=== PATIENT | female | born 1995 | race Caucasian/White ===

== ENCOUNTER → 2019-08-10 | Outpatient (REF) | payer OTHER ==
[2019-08-10 12:56] LABS: BASO % 0.3 % (0.0-1.0); EOS % 0.3 % (0.0-3.0); HEMATOCRIT 44.4 % (36.0-47.0); HEMOGLOBIN 14.5 g/dl (12.0-15.5); LYMPH # 2.3 10^3/uL (1.5-5.0); LYMPH % 30.3 % (24.0-44.0); MEAN CORPUSCULAR HEMOGLOBIN 28.1 pg (27.0-33.0); MEAN CORPUSCULAR HGB CONC 32.7 g/dl (32.0-36.5); MONO # 0.4 10^3/uL (0.0-0.8); MONO % 4.9 % (0.0-5.0); NEUTROPHILS # 4.8 10^3/uL (1.5-8.5); NEUTROPHILS % 63.9 % (36.0-66.0); PLATELET COUNT, AUTOMATED 237 10^3/uL (150-450); RED BLOOD COUNT 5.16 10^6/uL (4.00-5.40); WHITE BLOOD COUNT 7.5 10^3/uL (4.0-10.0)
== END ==
LOC: M SFHCPLAZ 09:58
PROVIDERS: ATTEND Family Medicine
DX: R59.0 Localized enlarged lymph nodes (principal)
CPT/HCPCS: 36415; 85025; G0463

== ENCOUNTER → 2019-08-14 | Outpatient (CLI) | payer OTHER ==
--- NOTE | 2019-08-15 08:18 | REP ---
FOCUSED RIGHT BREAST SONOGRAPHY: HISTORY: Discomfort in the areolar region and area lateral to the areola. Prior history of shingles affecting the right breast. Axillary lymphadenopathy. SONOGRAPHIC FINDINGS: Scanning in the subareolar region of the right breast shows a heterogeneous fibroglandular normal air. No cyst or mass is seen in this location. No suspicious sonographic findings are seen. In the right axilla, sonographic scanning demonstrates two identifiable lymph nodes measured as follows: 1.8 x 1.5 x 1.3 and 2.1 x 1.6 x 0.8 cm. The larger of these is predominately fat replaced with only a thin rim of cortex. The smaller lymph node, 1.8 cm in greatest diameter, shows some hypertrophy of its cortical margin but the hilar architecture is preserved. This may be reactive hypertrophy. IMPRESSION: BIRADS category 3 probably benign findings. There is a single slightly hypertrophied lymph node visible in the right axilla in this patient with a recent history of cutaneous inflammation. This is likely reactive. Repeat sonography could be considered in 6 months and clinical follow-up is advised. This patient's estimated Tyrer-Cuzick lifetime risk assessment for breast cancer is 12.2 %.
== END ==
LOC: M WHC 12:44
PROVIDERS: ATTEND Family Medicine
DX: R59.0 Localized enlarged lymph nodes (principal); N64.4 Mastodynia

== ENCOUNTER → 2019-08-18 | Outpatient (REF) | payer OTHER ==
[2019-08-18 12:55] LABS: HEMOGLOBIN A1c 5.5 %
== END ==
LOC: M SFHCPLAZ 10:01
PROVIDERS: ATTEND Family Medicine
DX: Z86.32 Personal history of gestational diabetes (principal)

== ENCOUNTER → 2019-08-18 | Outpatient (CLI) | payer OTHER ==
--- NOTE | 2019-08-18 15:37 | REP ---
ULTRASONOGRAPHY OF A SKIN NODULE ON THE BUTTOCK REGION NEAR THE GLUTEAL CLEFT ON THE LEFT: Multiple sonographic images of the region of interest shows no cystic or solid mass. No ultrasonographic abnormalities are noted. Electronically Signed by Chau Cardozo DO 08/18/2019 03:45 P
== END ==
LOC: M RAD 14:39
PROVIDERS: ATTEND Family Medicine
DX: R22.9 Localized swelling, mass and lump, unspecified (principal); Z86.32 Personal history of gestational diabetes

== ENCOUNTER → 2019-12-01 | Outpatient (REF) | payer OTHER ==
[2019-12-01 17:07] LABS: HEMATOCRIT 40.3 % (36.0-47.0); HEMOGLOBIN 13.4 g/dl (12.0-15.5); MEAN CORPUSCULAR HEMOGLOBIN 28.3 pg (27.0-33.0); MEAN CORPUSCULAR HGB CONC 33.3 g/dl (32.0-36.5); MEAN CORPUSCULAR VOLUME 85.2 fl (80.0-96.0); PLATELET COUNT, AUTOMATED 230 10^3/uL (150-450); RED BLOOD COUNT 4.73 10^6/uL (4.00-5.40); WHITE BLOOD COUNT 9.8 10^3/uL (4.0-10.0)
[2019-12-01 17:26] LABS: GLUCOSE CHALLENGE TEST 1 HOUR 120 MG/DL (LESS THAN 140)
[2019-12-01 17:39] LABS: HEMOGLOBIN A1c 5.5 %
[2019-12-01 18:21] LABS: HIV 1&2 SCREEN CENTAUR NEGATIVE (NEGATIVE)
[2019-12-01 20:17] LABS: CHLAMYDIA DNA AMPLIFICATION NEGATIVE (NEGATIVE); GC DNA AMPLIFICATION NEGATIVE (NEGATIVE)
[2019-12-04 11:06] LABS: HEPATITIS C VIRUS ABY INDEX 0.2 INDEX (<0.8)
== END ==
LOC: M PLALAB 12:18
PROVIDERS: ATTEND Advanced Practice Midwife
DX: Z34.91 Encounter for supervision of normal pregnancy, unspecified, first trimester (principal)

== ENCOUNTER → 2020-03-04 | Outpatient (CLI) | payer OTHER ==
--- NOTE | 2020-03-12 13:19 | REP ---
OB ULTRASOUND: ANATOMY SCREENING PERFORMED Real time sonographic evaluation of gravid uterus performed. There is a single living intrauterine gestation. The estimated gestational age is reportedly 21 weeks 4 days, 07/11/20. Todays measurements indicated appropriate growth. BPD: 53mm, 22 weeks 1 day, 65th percentile HC: 205mm, 22 weeks 4 days, 81st percentile AC: 170mm, 22 weeks 0 days, 58th percentile FL: 36mm, 21 weeks 3 days, 47th percentile HC/AC ratio 1.21, normal range 1.05-1.24 Estimated weight 455g, 57th percentile position is transverse with head to the left side. Placenta is anterior and grade 0 with no previa or abruption. HEART RATE is 156bpm. Amniotic fluid appears within normal limits. The cervix is closed and measures 3.5cm in length. The anatomy includes the lateral ventricles, posterior fossa, upper lip, ventricular outflow tracts, stomach, kidneys, bladder, spine, three vessel cord and cord insertion. Four-chamber heart is not well visualized. MTDD
== END ==
LOC: M WHC 12:22
PROVIDERS: ATTEND Advanced Practice Midwife
DX: Z34.82 Encounter for supervision of other normal pregnancy, second trimester (principal); Z3A.21 21 weeks gestation of pregnancy

== ENCOUNTER → 2020-03-26 | Outpatient (CLI) | payer OTHER ==
--- NOTE | 2020-03-26 13:46 | REP ---
INDICATION: Z34.92 F/U ANATOMY/HEART COMPARISON: 03/04/2020 TECHNIQUE: Transabdominal obstetrical ultrasound with color Doppler evaluation. FINDINGS: Examination demonstrates a single live intrauterine in breech presentation. motion is identified by technologist. Placenta is noted anterior and grade 1 without evidence for placenta previa or abruption. Amniotic fluid volume is normal. Cervix measures 3.4 cm in length and appears closed. No evidence for nuchal cord. Gestational age by LMP 24 weeks 5 days with CASSIA 07/11/2020. Gestational age by current measurements 27 weeks 2 days with CASSIA 06/23/2020. FHR equals 149 beats per minute. Estimated weight 1110 grams (greater than 97thpercentile based on age by LMP, and 85th percentile based on age by current measurements at 27 weeks 2 days). Anatomical assessment demonstrates normal four-chamber heart. IMPRESSION: 1. Normal appearance to the four-chamber heart. In conjunction with prior examination anatomical assessment is complete and normal. 2. Estimated weight may be greater than expected and requires correlation. <Electronically signed by Ryan Santiago > 03/26/20 0954
== END ==
LOC: M WHC 12:13
PROVIDERS: ATTEND Advanced Practice Midwife
DX: Z34.92 Encounter for supervision of normal pregnancy, unspecified, second trimester (principal)

== ENCOUNTER → 2020-04-12 | Outpatient (REF) | payer OTHER ==
[2020-04-12 15:36] LABS: HEMATOCRIT 38.6 % (36.0-47.0); HEMOGLOBIN 12.6 g/dl (12.0-15.5); MEAN CORPUSCULAR HEMOGLOBIN 29.2 pg (27.0-33.0); MEAN CORPUSCULAR HGB CONC 32.6 g/dl (32.0-36.5); MEAN CORPUSCULAR VOLUME 89.6 fl (80.0-96.0); PLATELET COUNT, AUTOMATED 193 10^3/uL (150-450); RED BLOOD COUNT 4.31 10^6/uL (4.00-5.40); WHITE BLOOD COUNT 13.1 10^3/uL (4.0-10.0)
== END ==
LOC: M PLALAB 13:27
PROVIDERS: ATTEND Advanced Practice Midwife
DX: Z34.92 Encounter for supervision of normal pregnancy, unspecified, second trimester (principal); Z36.89 Encounter for other specified antenatal screening

== ENCOUNTER → 2020-04-26 | Outpatient (CLI) | payer OTHER | LOC: M LAB 07:30 | PROVIDERS: ATTEND Specialist | DX: O99.810 Abnormal glucose complicating pregnancy (principal); Z3A.00 Weeks of gestation of pregnancy not specified ==

== ENCOUNTER → 2020-06-14 | Outpatient (CLI) | payer OTHER ==
[~2020-06-14] MED LIST: PRENTAB9 PO
--- NOTE | 2020-06-14 10:32 | REP ---
INDICATION: GESTATIONAL DIABETES,GROWTH COMPARISON: 03/26/2020 TECHNIQUE: Transabdominal obstetrical ultrasound with color Doppler evaluation. FINDINGS: Examination demonstrates a single live intrauterine in cephalic presentation. motion is identified by technologist. Placenta is noted anterior and grade 3 without evidence for placenta previa or abruption. Amniotic fluid volume is normal. Cervix appears closed. Gestational age by LMP 36 weeks 1 day with CASSIA 07/11/2020. Gestational age by current measurements 39 weeks 0 days with CASSIA 06/21/2020. DEBBI: 10.4 cm (7.7-24.9) FHR equals 169 beats per minute. BPD: 9.2 cm 37 weeks 3 days HC: 34.7 cm 40 weeks 1 day AC: 36.1 cm 40 weeks 0 days FL: 7.7 cm 39 weeks 3 days HL: 6.6 cm 38 weeks 1 day HC/AC: 0.96 Estimated weight 3812 grams (> 97thpercentile based on age by LMP and 1st ultrasound). IMPRESSION: Increased weight and growth as compared with age by LMP and 1st ultrasound. <Electronically signed by Ryan Santiago > 06/14/20 1026
== END ==
LOC: M WHC 08:45
PROVIDERS: ATTEND Specialist
DX: O24.419 Gestational diabetes mellitus in pregnancy, unspecified control (principal)
CPT/HCPCS: 76815; 87081; G0463

== ENCOUNTER → 2020-06-14 | Outpatient (REF) | payer OTHER | LOC: M PLALAB 08:35 | PROVIDERS: ATTEND Obstetrics & Gynecology | DX: O24.419 Gestational diabetes mellitus in pregnancy, unspecified control (principal); Z3A.36 36 weeks gestation of pregnancy ==

== ENCOUNTER 2020-07-04 09:45 | Inpatient (IN) | payer OTHER ==
[~2020-07-04] VITALS: Ht 166.4 cm; Wt 90.1 kg
[2020-07-04] VITALS (47 sets, daily range): BP systolic 100–147; BP diastolic 54–91
--- OUTSIDE RECORDS SUMMARY | 2020-07-04 09:59 | CCD ---
Author Author [facility] Organization [facility] Address Unknown Phone Unavailable Care Team Providers Care Furniture Servicer Name Role Phone LaurasujathaJoyce guerrero Unavailable PROBLEMS Type Condition ICD9-CM Code [id number] Code Onset Dates Condition S tatus SNOMED Code Notes Problem History of gestational diabetes Z86.32 Active 623776805 Problem Supervision of other normal Z34.80 Ac tive 992266487 ALLERGIES Allergen (clinical drug ingredient) Drug/Non Drug Allergy do cumented on EMR Reaction Allergy Type Onset Date Status purex hives Non Drug Allergy Active ENCOUNTERS from 1994 to 2020-05-11 Encounter Location Date Provider Diagnosis [facility] [address] [place] [id number] May, Joyce Dorseywyatt Gestational diabe roman O24.419 and 31 weeks gestation of Z3A.31 IMMUNIZATIONS Vaccine Route Administration Date Status Influenza (18 yrs & older) Flublok IM Intramuscular Mar 18, 2020 Administered SOCIAL HISTORY Tobacco Use: Social History Observation Description Date Details (start date - stop date) Former Smoker Sex Assigned At : Social History Observation Description Sex Assigned At Unknown Education: Question Answer Notes Level of Education: College Audit Question Answer Notes Total Score: 0 Interpretation: Alcohol Education Language: Question Answer Notes Languages spoken: Welsh Confucianist: Question Answer Notes Confucianist 33 None Domestic Violence: Question Answer Notes Status: Sexual Hx: Question Answer Notes Had sex in the last 12 months (vaginal, oral, or anal)? Yes LMP: 07/25/2019 Have you ever had an STD? No with Men only Use protection? No Drug and Alcohol Question Answer Notes Total Score: 0 Interpretation: No problems reported Tobacco Use: Question Answer Notes Are you a: former smoker How long has it been since you last smoked? 1-5 years REASON FOR REFERRAL No Information VITAL SIGNS Weight 195 lbs May, Height 65 in May, BMI 32.45 kg/m2 May, Blood pressure systolic 116 mm Hg May, Blood pressure diastolic 68 mm Hg May, MEDICATIONS Medication SIG (Take, Route, Frequency, Duration) Notes Start Da te End Date Status Glucose Monitor - as directed O24.419 four times daily for 30 Da ys May, Active Alcohol Wipes 70 % as directed O24.419 topically four times olinda y for 30 Days May, Active One A Day 0.4-25 MG as directed Orally Active Folic Acid 1 MG 1 tablet Orally Once a day Active Fifty50 Glucose Test 2.0 - as directed In Vitro 4 times daily fo r 30 days May, Active Test Strips - as directed O24.419 four times daily for 30 Days May, Active Lancets - as directed O24.419 four times daily for 30 Days May, Active PROCEDURES No Information RESULTS No Results REASON FOR VISIT 4WK PN MEDICAL (GENERAL) HISTORY Type Description Date Medical History Hx gestational diabetes Medical History Former smoker, quit 2015 Medical History Hx infection in right breast Surgical History childbirth 09/2018 Hospitalization History childbirth Goals Section No Information Health Concerns No Information MEDICAL EQUIPMENT No Information MENTAL STATUS No Information FUNCTIONAL STATUS No Information ASSESSMENTS Encounter Date Diagnosis Assessment Notes Treatment Notes Treatm ent Clinical Notes May, Gestational diabetes (ICD-10 - O24.419) May, 31 weeks gestation of (ICD-10 - Z3A.31 ) PLAN OF TREATMENT Medication Medication Name Sig Start Date Stop Date Glucose Monitor - as directed O24.419 four times daily for 30 Da ys May, Fifty50 Glucose Test 2.0 - as directed In Vitro 4 times olinda y for 30 days May, Alcohol Wipes 70 % as directed O24.419 topically four times daily for 30 Days May, Test Strips - as directed O24.419 four times daily for 30 Days May, Lancets - as directed O24.419 four times daily for 30 Days May, Next Appt Details 2 Weeks Reason:return ob Provider Name:Pj Singh 2020-05-28 01:40:00 PM, [address] [place], [id number], Provider Name:Debra Funez, 2020-08-12 09:30:00 AM, [address] [place], [address], Follow Up:2 Weeksreturn ob Insurance Providers Payer Name Payer Address Payer Phone Insured Name Patient Relati onship to Insured Coverage Start Date Coverage End Date [facility] [employer] [id number] [place] [id number] JOSEY NEWMAN
--- OUTSIDE RECORDS SUMMARY | 2020-07-04 09:59 | CCD ---
Author Author [facility] Organization [facility] Address Unknown Phone Unavailable Care Team Providers Care Chief Investigator Name Role Phone Siobhan Barrientosrina Unavailable PROBLEMS Type Condition ICD9-CM Code [id number] Code Onset Dates Condition S tatus SNOMED Code Notes Problem History of gestational diabetes Z86.32 Active 015659673 Problem Supervision of other normal Z34.80 Ac tive [id number] ALLERGIES Allergen (clinical drug ingredient) Drug/Non Drug Allergy do cumented on EMR Reaction Allergy Type Onset Date Status purex hives Non Drug Allergy Active ENCOUNTERS from 1994 to 2020-05-07 Encounter Location Date Provider Diagnosis [facility] [place] [address] Apr, Coby Iliana Supervision of shanthi cruz in second trimester Z34.92 and 27 weeks gestation of Z3A.27 IMMUNIZATIONS Vaccine Route Administration Date Status Influenza [...] Education Language: Question Answer Notes Languages spoken: Liberian Presybeterian: Question Answer Notes Presybeterian 33 None Domestic Violence: Question Answer Notes Status: Sexual Hx: Question Answer Notes Had sex in the last 12 months (vaginal, oral, or anal)? Yes LMP: 07/25/2019 Have you ever had an STD? No with Men only Use protection? No Drug and Alcohol Question Answer Notes Interpretation: No problems reported Total Score: 0 Tobacco Use: Question Answer Notes Are you a: former smoker How long has it been since you last smoked? 1-5 years REASON FOR REFERRAL No Information VITAL SIGNS Weight 192.2 lbs Apr, Weight-kg 87.18 kg Apr, Height 65 in Apr, BMI 31.984 kg/m2 Apr, Blood pressure systolic 110 mm Hg Apr, Blood pressure diastolic 70 mm Hg Apr, MEDICATIONS Medication SIG (Take, Route, Frequency, Duration) Notes Start Da te End Date Status One A Day 0.4-25 MG as directed Orally Active Folic Acid 1 MG 1 tablet Orally Once a day Active PROCEDURES No Information RESULTS No Results REASON FOR VISIT 4 WEEK PN MEDICAL (GENERAL) HISTORY Type Description Date [...] Notes Treatment Notes Treatm ent Clinical Notes Apr, Supervision of normal pregna ncy in second trimester (ICD-10 - Z34.92) Apr, 27 weeks gestation of (ICD-10 - Z3A.27 ) PLAN OF TREATMENT Next Appt Details 4 Weeks Reason:PN Provider Name:Joyce Whitaker, 2020-05-09 01:40:00 PM, [address] [place] [address], [phone], Provider Name:Debra Funez, 2020-08-12 09:30:00 AM, [address] [place] [address], [phone], Follow Up:4 WeeksPN Insurance Providers Payer Name Payer Address Payer Phone Insured Name Patient Relati onship to Insured Coverage Start Date Coverage End Date [employer] [facility] [employer] [id number] [place] [id number] JOSEY NEWMAN
--- OUTSIDE RECORDS SUMMARY | 2020-07-04 09:59 | CCD ---
Author Author [facility] Organization [facility] Address Unknown Phone Unavailable Support Name Relationship Address Phone UE Next Of Kin Unknown Unavailable RUDY NEWMAN Next Of Kin [address] [place] [address] [place]Y ECON [address] [place] [address] Unavailable Re-disclosure Warning The records that you are about to access may contain information from federally-assisted alcohol or drug abuse programs. If such information is present, then the following federally mandated warning applies: This information has been disclosed to you from records protected by federal confidentiality rules (42 CFR part 2). The federal rules prohibit you from making any further disclosure of this information unless further disclosure is expressly permitted by the written consent of the person to whom it pertains or as otherwise permitted by 42 CFR part 2. A general authorization for the release of medical or other information is NOT sufficient for this purpose. The Federal rules restrict any use of the information to criminally investigate or prosecute any alcohol or drug abuse patient.The records that you are about to access may contain highly sensitive health information, the redisclosure of which is protected by Article 27-F of the [facility] Public Health law. If you continue you may have access to information: Regarding HIV / AIDS; Provided by facilities licensed or operated by the [facility] Office of Mental Health; or Provided by the [facility] Office for People With Developmental Disabilities. If such information is present, then the following [facility] mandated warning applies: This information has been disclosed to you from confidential records which are protected by state law. State law prohibits you from making any further disclosure of this information without the specific written consent of the person to whom it pertains, or as otherwise permitted by law. Any unauthorized further disclosure in violation of state law may result in a fine or nursing home sentence or both. A general authorization for the release of medical or other information is NOT sufficient authorization for further disc losure. Allergies and Adverse Reactions Type Description Substance Reaction Status Data Source(s ) purex purex purex hives Active eCW1 ([facility]) purex purex purex hives Active eCW1 ([facility]) Encounters Encounter Providers Location Date Indications Data Source(s ) ( ESTOB) [facility] Est [facility] [address] [place] [address] 06/14/2020 12:00:00 AM EST eCW1 ([facility]) ( ESTOB) [facility] [address] [place] [address] 05/28/2020 12:00:00 AM EST eCW1 ([facility]) ( ESTOB) [facility] [address] [place] [address] 05/09/2020 12:00:00 AM EST eCW1 ([facility]) Unknown [address] [facility] [address] 04/16/2020 12:00:00 AM EST eCW1 ([facility]) ( ESTOB) [facility] [address] [place] [address] 04/12/2020 12:00:00 AM EST eCW1 ([facility]) Outpatient [address] [facility] [address] 03/18/2020 12:00:00 AM EDT eCW1 ([facility]) ( ESTOB) [facility] Est OB [address] [place] [address] 03/11/2020 12:00:00 AM EDT eCW1 ([facility]) ( NEWOB) [facility] New OB Visit [address] [place] [address] 11/30/2019 12:00:00 AM EDT eCW1 ([facility]) [facility] [place] [address] [facility] [address] 11/03/2019 12:00:00 AM EDT eCW1 ([facility]) [facility] [place] [address] [facility] [place] [address] 09/01/2019 12:00:00 AM EDT eCW1 ([facility]) [facility] [address] [facility] [address] 08/31/2019 12:00:00 AM EDT eCW1 ([facility]) Outpatient 08/22/2019 11:30:00 AM EDT [facility] [address] [place] [address], [place] [address] 08/21/2019 12:00:00 AM EDT eCW1 ([facility]) [facility] [address] [place] [address], [place] [address] 08/18/2019 12:00:00 AM EDT eCW1 ([facility]) [facility] [address] [facility] [address] 08/16/2019 12:00:00 AM EDT eCW1 ([facility]) [facility] [address] [facility] [address] 08/10/2019 12:00:00 AM EST eCW1 ([facility]) Immunizations Vaccine Date Status Description Data Source(s) Tdap 05/28/2020 02:09:00 PM EST completed e CW1 ([facility]) Tdap 05/28/2020 02:09:00 PM EST completed e CW1 ([facility]) influenza, recombinant, quadrIvalent,injectable, prese rvative free 03/18/2020 08:45:00 AM EDT completed eCW1 ([facility]) influenza, recombinant, quadrIvalent,injectable, prese rvative free 03/18/2020 08:45:00 AM EDT completed eCW1 ([facility]) influenza, recombinant, quadrIvalent,injectable, prese rvative free 03/18/2020 08:45:00 AM EDT completed eCW1 ([facility]) influenza, recombinant, quadrIvalent,injectable, prese rvative free 03/18/2020 08:45:00 AM EDT completed eCW1 ([facility]) influenza, recombinant, quadrIvalent,injectable, prese rvative free 03/18/2020 08:45:00 AM EDT completed eCW1 ([facility]) influenza, recombinant, quadrIvalent,injectable, prese rvative free 03/18/2020 08:45:00 AM EDT completed eCW1 ([facility]) influenza, recombinant, quadrIvalent,injectable, prese rvative free 03/18/2020 08:45:00 AM EDT completed eCW1 ([facility]) Medications Medication Brand Name Start Date Product Form Dose Route Admi nistrative Instructions Pharmacy Instructions Status Indications Reaction Description Data Source(s) Alcohol Wipes 70 % Alcohol Wipes 70 % 05/09/2020 12:00:00 AM EST active Alcohol Wipes 70 % eCW1 ([facility]) Test Strips - UNK 05/09/2020 12:00:00 AM EST acti ve Test Strips - eCW1 ([facility]) Fifty50 Glucose Test 2.0 - Fifty50 Glucose Test 2.0 - 2019 12:00:00 AM EST active Fifty50 Glucose T est 2.0 - eCW1 ([facility]) Fifty50 Glucose Test 2.0 - Fifty50 Glucose Test 2.0 - 2019 12:00:00 AM EST active Fifty50 Glucose T est 2.0 - eCW1 ([facility]) Glucose Monitor - UNK 05/09/2020 12:00:00 AM EST active Glucose Monitor - eCW1 ([facility]) Lancets - Lancets - 05/09/2020 12:00:00 AM EST act kierra Lancets - eCW1 ([facility]) Glucose Monitor - UNK 05/09/2020 12:00:00 AM EST active Glucose Monitor - eCW1 ([facility]) Lancets - Lancets - 05/09/2020 12:00:00 AM EST act kierra Lancets - eCW1 ([facility]) Fifty50 Glucose Test 2.0 - Fifty50 Glucose Test 2.0 - 2019 12:00:00 AM EST active Fifty50 Glucose T est 2.0 - eCW1 ([facility]) Test Strips - UNK 05/09/2020 12:00:00 AM EST acti ve Test Strips - eCW1 ([facility]) Glucose Monitor - UNK 05/09/2020 12:00:00 AM EST active Glucose Monitor - eCW1 ([facility]) Alcohol Wipes 70 % Alcohol Wipes 70 % 05/09/2020 12:00:00 AM EST active Alcohol Wipes 70 % eCW1 ([facility]) Alcohol Wipes 70 % Alcohol Wipes 70 % 05/09/2020 12:00:00 AM EST active Alcohol Wipes 70 % eCW1 ([facility]) Lancets - Lancets - 05/09/2020 12:00:00 AM EST act kierra Lancets - eCW1 ([facility]) Test Strips - UNK 05/09/2020 12:00:00 AM EST acti ve Test Strips - eCW1 ([facility]) Insurance Providers Payer name Policy type / Coverage type Policy ID Covered republican ID Covered republican's relationship to olivier Policy Olivier Plan Information [facility] HUMANA [id number] HUMANA [facility] O [id number] S [id number] Problems, Conditions, and Diagnoses Code Display Name Description Problem Type Effective Dates Data Source(s) Z34.80 care Supervision of other normal Aranza asterranjan 11/30/2019 12:00:00 AM EDT eCW1 ([facility]) Z86.32 [id number] History of gestational diabetes Problem 08/16/2019 12:00:00 AM EDT eCW1 ([facility]) Z86.32 [id number] History of gestational diabetes Problem 08/16/2019 12:00:00 AM EDT eCW1 ([facility]) Surgeries/Procedures Procedure Description Date Indications Data Source(s) Immunization: Boostrix 0.5mL IM (TDAP) 05/28/2020 12:0 0:00 AM EST eCW1 ([facility]) Immunization: Flublok Quadrivalent (18 years & older) 0.5mL IM (Influenza) 03/18/2020 12:00:00 AM EDT eCW1 ([facility] by [facility]) Results ID Date Data Source GROUP B STREP CULTURE 06/14/2020 12:00:00 AM EST eCW1 ([facility]) Name Value Range Interpretation Code Description Data Karmen rce(s) Supporting Document(s) GROUP B STREP CULTURE eCW1 ([facility]) ID Date Data Source Glucose Challenge Test 1 Hour 04/16/2020 09:33:00 AM EST eCW 1 ([facility]) Name Value Range Interpretation Code Description Data Karmen rce(s) Supporting Document(s) 150 GLUCOSE CHALLENGE TEST 1 HOUR eCW1 ([facility]) ID Date Data Source Type and Screen (D Rh Antibody Screen) 04/16/2020 09:31:23 A M EST eCW1 ([facility]) Name Value Range Interpretation Code Description Data Karmen rce(s) Supporting Document(s) A POSITIVE BLOOD TYPE eCW1 ([facility]) NEGATIVE AB SCREEN (INDIRECT COOMB S)VIS eCW1 ([facility]) ID Date Data Source CBC - Complete Blood Count 04/16/2020 09:31:14 AM EST eCW1 ( [facility]) Name Value Range Interpretation Code Description Data Karmen rce(s) Supporting Document(s) 4.31 RED BLOOD COUNT eCW1 ([facility]) 12.6 HEMOGLOBIN eCW1 ([facility]) 13.1 WHITE BLOOD COUNT eCW1 ([facility]) 32.6 MEAN CORPUSCULAR HGB CONC eCW1 ([facility]) 38.6 HEMATOCRIT eCW1 ([facility]) 89.6 MEAN CORPUSCULAR VOLUME eCW1 ( [facility]) 29.2 MEAN CORPUSCULAR HEMOGLOBIN eC W1 ([facility]) 13.3 RED CELL DISTRIBUTION WIDTH eC W1 ([facility]) 193 PLATELET COUNT, AUTOMATED eCW1 ([facility]) ID Date Data Source CBC with Differential 08/10/2019 12:00:00 AM EST eCW1 ([facility]) Name Value Range Interpretation Code Description Data Karmen rce(s) Supporting Document(s) 5.16 4.00-5.40 RED BLOOD COUNT eCW1 ([facility]) 7.5 4.0-10.0 WHITE BLOOD COUNT eCW1 ([facility]) 44.4 36.0-47.0 HEMATOCRIT eCW1 ([facility]) 14.5 12.0-15.5 HEMOGLOBIN eCW1 ([facility]) 28.1 27.0-33.0 MEAN CORPUSCULAR HEMOGLOB IN eCW1 ([facility]) 86.0 80.0-96.0 MEAN CORPUSCULAR VOLUME e CW1 ([facility]) 32.7 32.0-36.5 MEAN CORPUSCULAR HGB CONC eCW1 ([facility]) 237 150-450 PLATELET COUNT, AUTOMATED eCW1 ([facility]) 12.0 11.5-14.5 RED CELL DISTRIBUTION WID TH eCW1 ([facility]) 63.9 36.0-66.0 NEUTROPHILS % eCW1 ([facility]) 4.9 0.0-5.0 MONO % eCW1 ([facility]) 30.3 24.0-44.0 LYMPH % eCW1 ([facility]) 0.3 0.0-3.0 EOS % eCW1 ([facility]) 0.3 0.0-1.0 BASO % eCW1 ([facility]) 2.3 1.5-5.0 LYMPH # eCW1 ([facility]) 4.8 1.5-8.5 NEUTROPHILS # eCW1 ([facility]) 0.4 0.0-0.8 MONO # eCW1 ([facility]) 0.0 0.0-0.2 BASO # eCW1 ([facility]) 0.0 0.0-0.5 EOS # eCW1 ([facility]) Procedure Social History Code Duration Value Status Description Data Source(s ) Smoking 06/14/2020 12:00:00 AM EST Former Smoker completed Former Smoker eCW1 ([facility]) Smoking 05/22/2020 12:00:00 AM EST Former Smoker completed Former Smoker eCW1 ([facility]) Smoking 05/09/2020 12:00:00 AM EST Former Smoker completed Former Smoker eCW1 ([facility]) Smoking 04/09/2020 12:00:00 AM EST Former Smoker completed Former Smoker eCW1 ([facility]) Smoking 04/09/2020 12:00:00 AM EST Former Smoker completed Former Smoker eCW1 ([facility]) Smoking 04/09/2020 12:00:00 AM EST Former Smoker completed Former Smoker eCW1 ([facility]) Smoking 11/30/2019 12:00:00 AM EDT Former Smoker completed Former Smoker eCW1 ([facility]) Smoking 11/30/2019 12:00:00 AM EDT Former Smoker completed Former Smoker eCW1 ([facility]) Vital Signs ID Date Data Source UNK Name Value Range Interpretation Code Description Data Source(s) Diastolic blood pressure 78 mm[Hg] 78 mm[Hg] eCW1 ([facility]) Systolic blood pressure 126 mm[Hg] 126 mm[Hg] e CW1 ([facility]) Body mass index (BMI) [Ratio] 32.45 kg/m2 32.45 kg/m2 [facility] ([facility]) Body height 65 [in_i] 65 [in_i] eCW1 ([facility]) Body weight 195 [lb_av] 195 [lb_av] W1 ([facility]) Diastolic blood pressure 82 mm[Hg] 82 mm[Hg] eCW1 ([facility]) Systolic blood pressure 112 mm[Hg] 112 mm[Hg] e CW1 ([facility]) Body mass index (BMI) [Ratio] 32.217 kg/m2 32.2 17 kg/m2 [facility] ([facility]) Body height 65 [in_i] 65 [in_i] W1 ([facility]) Body weight 87.82 kg 87.82 kg W1 ([facility]) Body weight 193.6 [lb_av] 193.6 [lb_av] eCW1 ([facility]) Diastolic blood pressure 68 mm[Hg] 68 mm[Hg] eCW1 ([facility]) Systolic blood pressure 116 mm[Hg] 116 mm[Hg] e CW1 ([facility]) Body mass index (BMI) [Ratio] 32.45 kg/m2 32.45 kg/m2 eCW1 ([facility]) Body height 65 [in_i] 65 [in_i] eCW1 ([facility]) Body weight 195 [lb_av] 195 [lb_av] eCW1 ([facility]) Diastolic blood pressure 70 mm[Hg] 70 mm[Hg] eCW1 ([facility]) Systolic blood pressure 110 mm[Hg] 110 mm[Hg] e CW1 ([facility]) Body mass index (BMI) [Ratio] 31.984 kg/m2 31.9 84 kg/m2 eCW1 ([facility]) Body height 65 [in_i] 65 [in_i] eCW1 ([facility]) Body weight 87.18 kg 87.18 kg eCW1 ([facility]) Body weight 192.2 [lb_av] 192.2 [lb_av] eCW1 ([facility]) Diastolic blood pressure 70 mm[Hg] 70 mm[Hg] eCW1 ([facility]) Systolic blood pressure 110 mm[Hg] 110 mm[Hg] e CW1 ([facility]) Body mass index (BMI) [Ratio] 30.752 kg/m2 30.7 52 kg/m2 eCW1 ([facility]) Body height 65 [in_i] 65 [in_i] eCW1 ([facility]) Body weight 184.8 [lb_av] 184.8 [lb_av] eCW1 ([facility]) Diastolic blood pressure 70 mm[Hg] 70 mm[Hg] eCW1 ([facility]) Systolic blood pressure 122 mm[Hg] 122 mm[Hg] e CW1 ([facility]) Body mass index (BMI) [Ratio] 29.122 kg/m2 29.1 22 kg/m2 eCW1 ([facility]) Body height 65 [in_i] 65 [in_i] eCW1 ([facility]) Body weight 175 [lb_av] 175 [lb_av] eCW1 ([facility]) Diastolic blood pressure 72 mm[Hg] 72 mm[Hg] eCW1 ([facility]) Systolic blood pressure 120 mm[Hg] 120 mm[Hg] e CW1 ([facility]) Body temperature 97.6 [degF] 97.6 [degF] eCW1 ( [facility]) Respiratory rate 20 /min 20 /min eCW1 ([facility]) Heart rate 98 /min 98 /min eCW1 ([facility]) Body mass index (BMI) [Ratio] 28.79 kg/m2 28.79 kg/m2 eCW1 ([facility]) Body height 65 [in_us] 65 [in_us] eCW1 ([facility]) Body weight Measured 173 [lb_av] 173 [lb_av] eC W1 ([facility]) Diastolic blood pressure 66 mm[Hg] 66 mm[Hg] eCW1 ([facility]) Systolic blood pressure 120 mm[Hg] 120 mm[Hg] e CW1 ([facility]) Body temperature 98 [degF] 98 [degF] eCW1 ([facility]) Respiratory rate 20 /min 20 /min eCW1 ([facility]) Heart rate 98 /min 98 /min eCW1 ([facility]) Body mass index (BMI) [Ratio] 29.12 kg/m2 29.12 kg/m2 eCW1 ([facility]) Body height 65 [in_us] 65 [in_us] eCW1 ([facility]) Body weight Measured 175 [lb_av] 175 [lb_av] eC W1 ([facility]) Patient Treatment Plan of Care Planned Activity Planned Date Details Description Data Source (s) Karen - 05/09/2020 12:00:00 AM EST e CW1 ([facility]) Test Strips - 05/09/2020 12:00:00 AM EST eCW1 ([facility]) Fifty50 Glucose Test 2.0 - 05/09/2020 12:00:00 AM EST eCW1 ([facility]) Alcohol Wipes 70 % 05/09/2020 12:00:00 AM EST eCW1 ([facility]) Glucose Monitor - 05/09/2020 12:00:00 AM EST eCW1 ([facility])
--- OUTSIDE RECORDS SUMMARY | 2020-07-04 09:59 | CCD ---
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 Name Role Phone Pj Singh Unavailable PROBLEMS Type Condition ICD9-CM Code BAS84-VA Code Onset Dates Condition S tatus SNOMED Code Notes Problem History of gestational diabetes Z86.32 Active [id number] Problem Supervision of other normal Z34.80 Ac tive [id number] ALLERGIES Allergen (clinical drug ingredient) Drug/Non Drug Allergy do cumented on EMR Reaction Allergy Type Onset Date Status purex hives Non Drug Allergy Active ENCOUNTERS from 1994 to 2020-06-01 Encounter Location Date Provider Diagnosis [facility] [address] [place] [phone] May, Pj Singh Gestational diabetes O24.419 ; 33 weeks gestation of Z3A.33 and Encounter for immunization Z23 IMMUNIZATIONS Vaccine Route Administration Date Status Influenza (18 yrs & older) Flublok IM Intramuscular Mar 18, 2020 Administered TDAP 0.5mL (Boostrix) IM Intramuscular May 28, 2020 Administe red SOCIAL HISTORY Tobacco Use: Social History Observation Description Date Details (start date - stop date) Former Smoker Sex Assigned At : Social History Observation Description Sex Assigned At Unknown Education: Question Answer Notes Level of Education: College Audit Question Answer Notes Interpretation: Alcohol Education Total Score: 0 Language: Question Answer Notes Languages spoken: Citizen [place] Moravian: Question Answer Notes Moravian 33 None Domestic Violence: Question Answer Notes [...] FOR REFERRAL No Information VITAL SIGNS Weight 193.6 lbs May, Weight-kg 87.82 kg May, Height 65 in May, BMI 32.217 kg/m2 May, Blood pressure systolic 112 mm Hg May, Blood pressure diastolic 82 mm Hg May, MEDICATIONS Medication SIG (Take, Route, Frequency, Duration) Notes Start Da te End Date Status Alcohol Wipes 70 % as directed O24.419 topically four times olinda y for 30 Days May, Active Glucose Monitor - as directed O24.419 four times daily for 30 Da ys May, Active Lancets - as directed O24.419 four times daily for 30 Days May, Active One A Day 0.4-25 MG as directed Orally Active Folic Acid 1 MG 1 tablet Orally Once a day Active Test Strips - as directed O24.419 four times daily for 30 Days May, Active Fifty50 Glucose Test 2.0 - as directed In Vitro 4 times daily fo r 30 days May, Active PROCEDURES from 1994 to 2020-06-01 Procedure Date Ordered Result Body Site Immunization: Boostrix 0.5mL IM (TDAP) 2020-05-28 N/A RESULTS No Results REASON FOR VISIT 2wk pn MEDICAL (GENERAL) HISTORY Type Description Date Medical [...] May, Gestational diabetes (ICD-10 - O24.419) May, 33 weeks gestation of (ICD-10 - Z3A.33 ) May, Encounter for immunization (ICD-10 - Z23) PLAN OF TREATMENT Treatment Notes Test Name Order Date PLZ OBS SINGLE GEST 2020-06-01 Next Appt Details Provider Name:Coby Barrientos, 2020-06 10:20:00 AM, [address] [place], [address], Provider Name:Debra Funez, 2020-08-12 09:30:00 AM, [address] [place], [address], Insurance Providers Payer Name Payer Address Payer Phone Insured Name Patient Relati onship to Insured Coverage Start Date Coverage End Date [facility] [id number] [place] [facility] [id number] JOSEY NEWMAN
--- OUTSIDE RECORDS SUMMARY | 2020-07-04 09:59 | CCD ---
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 Role Phone Marine Loja Unavailable PROBLEMS Type Condition ICD9-CM Code AIJ72-ED Code Onset Dates Condition S tatus SNOMED Code Notes Problem History of gestational diabetes Z86.32 Active 304709556 Problem Supervision of other normal Z34.80 Ac tive [id number] ALLERGIES Allergen (clinical drug ingredient) Drug/Non Drug Allergy do cumented on EMR Reaction Allergy Type Onset Date Status purex hives Non Drug Allergy Active ENCOUNTERS from 1994 to 2020-04-16 Encounter Location Date Provider Diagnosis [facility] [address] [place] [phone] Mar, Marine Loja Encounter for pregna ncy related examination in second trimester Z34.92 and 22 weeks gestation of Z3A.22 IMMUNIZATIONS Vaccine Route Administration Date Status Influenza [...] Education Language: Question Answer Notes Languages spoken: Czech Adventist: Question Answer Notes Adventist 33 None Domestic Violence: Question Answer Notes [...] FOR REFERRAL No Information VITAL SIGNS Weight 184.8 lbs Mar, Height 65 in Mar, BMI 30.752 kg/m2 Mar, Blood pressure systolic 110 mm Hg Mar, Blood pressure diastolic 70 mm Hg Mar, MEDICATIONS Medication SIG (Take, Route, Frequency, Duration) Start Date En d Date Status One A Day 0.4-25 MG as directed Orally Active Folic Acid 1 MG 1 tablet Orally Once a day Active PROCEDURES No Information RESULTS Component Value Reference Range Type and Screen (D Rh Antibody Screen) Reviewed date:04/16/2020 08:31:23 Interpretation: Performing Lab:[facility] LABORATORY [address] [place] [address] , ,[place] [address] BLOOD TYPE A POSITIVE AB SCREEN (INDIRECT VIOLETA)VIS NEGATIVE CBC - Complete Blood Count Reviewed date:04/16/2020 08:31:14 Interpretation: Performing Lab:[facility] LABORATORY [address] [facility] [address] , ,[place] [address] WHITE BLOOD COUNT 13.1 4.0-10.0 RED BLOOD COUNT 4.31 4.00-5.40 HEMOGLOBIN 12.6 12.0-15.5 HEMATOCRIT 38.6 36.0-47.0 MEAN CORPUSCULAR VOLUME 89.6 80.0-96.0 MEAN CORPUSCULAR HEMOGLOBIN 29.2 27.0-33.0 MEAN CORPUSCULAR HGB CONC 32.6 32.0-36.5 RED CELL DISTRIBUTION WIDTH 13.3 11.5-14.5 PLATELET COUNT, AUTOMATED 193 150-450 Glucose Challenge Test 1 Hour Reviewed date:04/16/2020 08:33:00 Interpretation: Performing Lab:[facility] LABORATORY [address] [place] [address] , ,[place] [address] GLUCOSE CHALLENGE TEST 1 HOUR 150 LESS THAN 140 REASON FOR VISIT 4 WK PN MEDICAL (GENERAL) HISTORY Type Description Date Medical History Hx gestational diabetes Medical History Former smoker, quit 2016 Medical History Hx infection in right breast Surgical History childbirth 09/2018 Hospitalization History childbirth Goals Section No Information Health Concerns No Information MEDICAL EQUIPMENT No Information MENTAL STATUS No Information FUNCTIONAL STATUS No Information ASSESSMENTS Encounter Date Diagnosis Notes Mar, 22 weeks gestation of (ICD-10 - Z3A.22) Mar, Encounter for rela matt examination in second trimester (ICD-10 - Z34.92) PLAN OF TREATMENT Treatment Notes Test Name Order Date AB SCREEN (INDIRECT VIOLETA)GEL Antibody Screen 2020-04 [facility] OBS LIMITED US 2020-04-16 Next Appt Details 4 Weeks Reason: Provider Name:Joyce Whitaker, 2020-05-09 01:40:00 PM, [address] [place] [address], [phone], Provider Name:Debra Funez, 2020-08-12 09:30:00 AM, [address] [place] [address], [phone], Insurance Providers Payer Name Payer Address Payer Phone Insured Name Patient Relati onship to Insured Coverage Start Date Coverage End Date [facility] [employer] [id number] [place] [id number] JOSEY NEWMAN
--- OUTSIDE RECORDS SUMMARY | 2020-07-04 09:59 | CCD ---
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 Name Role Phone Marine Loja Unavailable PROBLEMS Type Condition ICD9-CM Code DME10-XO Code Onset Dates Condition S tatus SNOMED Code Notes Problem History of gestational diabetes Z86.32 Active 659798988 Problem Supervision of other normal Z34.80 Ac tive [id number] ALLERGIES Allergen (clinical drug ingredient) Drug/Non Drug Allergy do cumented on EMR Reaction Allergy Type Onset Date Status purex hives Non Drug Allergy Active ENCOUNTERS from 1994 to 2020-04-19 Encounter Location Date Provider Diagnosis [facility] [address] [place] [phone] Apr, Marine Loja Impaired glucose in , antepartum O99.810 IMMUNIZATIONS Vaccine Route Administration Date Status Influenza [...] Education Language: Question Answer Notes Languages spoken: Kenyan Hoahaoism: Question Answer Notes Hoahaoism 33 None Domestic Violence: Question Answer Notes [...] REASON FOR REFERRAL No Information VITAL SIGNS No information MEDICATIONS Medication SIG (Take, Route, Frequency, Duration) Start Date En d Date Status One A Day 0.4-25 MG as directed Orally Active Folic Acid 1 MG 1 tablet Orally Once a day Active PROCEDURES No Information RESULTS No Results REASON FOR VISIT No Information MEDICAL (GENERAL) HISTORY Type Description Date Medical History Hx gestational diabetes Medical History Former smoker, quit 2015 Medical History Hx infection in right breast Surgical History childbirth 09/2018 Hospitalization History childbirth Goals Section No Information Health Concerns No Information MEDICAL EQUIPMENT No Information MENTAL STATUS No Information FUNCTIONAL STATUS No Information ASSESSMENTS Encounter Date Diagnosis Notes Apr, Impaired glucose in , antepartu m (ICD-10 - O99.810) PLAN OF TREATMENT Treatment Notes Test Name Order Date GLUCOSE BERTIN 3 HR GESTATIONAL 2020-04-19 Next Appt Details Provider Name:Joyce Whitaker, 2020-05-09 01:40:00 PM, [address] [place] [address], [phone], Provider Name:Debra Funez, 2020-08-12 09:30:00 AM, [address] [place] [address], [phone], Insurance Providers Payer Name Payer Address Payer Phone Insured Name Patient Relati onship to Insured Coverage Start Date Coverage End Date [facility] [employer] [address] [place] [id number] JOSEY NEWMAN
--- OUTSIDE RECORDS SUMMARY | 2020-07-04 09:59 | CCD ---
Author [facility] Address Unknown Phone Unavailable Care Team Providers Care Track Laminating Machine Tender Name Role Phone Coby Barrientos Unavailable PROBLEMS Type Condition ICD9-CM Code IHX85-MD Code Onset Dates Condition S tatus SNOMED Code Notes Problem History of gestational diabetes Z86.32 Active [id number] Problem Supervision of other normal Z34.80 Ac tive 825065912 ALLERGIES Allergen (clinical drug ingredient) Drug/Non Drug Allergy do cumented on EMR Reaction Allergy Type Onset Date Status purex hives Non Drug Allergy Active ENCOUNTERS from 1994 to 2020-06-20 Encounter Location Date Provider Diagnosis [facility] [address] [place] [phone] Jun, Coby Barrientos 36 weeks gestation o f Z3A.36 and Gestational diabetes O24.419 IMMUNIZATIONS Vaccine Route Administration Date Status Influenza [...] Education Language: Question Answer Notes Languages spoken: Thai Scientology: Question Answer Notes Scientology 33 None Domestic Violence: Question Answer Notes [...] No Information VITAL SIGNS Weight 195 lbs Jun, Height 65 in Jun, BMI 32.45 kg/m2 Jun, Blood pressure systolic 126 mm Hg Jun, Blood pressure diastolic 78 mm Hg Jun, MEDICATIONS Medication SIG (Take, Route, Frequency, Duration) Notes Start Da te End Date Status One A Day 0.4-25 MG as directed Orally Active Fifty50 Glucose Test 2.0 - as directed In Vitro 4 times daily fo r 30 days May, Active Lancets - as directed O24.419 four times daily for 30 Days May, Active Alcohol Wipes 70 % as directed O24.419 topically four times olinda y for 30 Days May, Active Folic Acid 1 MG 1 tablet Orally Once a day Active Glucose Monitor - as directed O24.419 four times daily for 30 Da ys May, Active Test Strips - as directed O24.419 four times daily for 30 Days May, Active PROCEDURES No Information RESULTS Component Value Reference Range GROUP B STREP CULTURE Reviewed date:06/16/2020 07:36:07 Interpretation: Performing Lab:[facility], [facility] [address] [facility] [address] , ,[place] [address] REASON FOR VISIT 2WK PN MEDICAL (GENERAL) HISTORY Type Description Date [...] Notes Treatment Notes Treatm ent Clinical Notes Jun, 36 weeks gestation of (ICD-10 - Z3A.36 ) Jun, Gestational diabetes (ICD-10 - O24.419) PLAN OF TREATMENT Next Appt Details 2 Weeks Reason:PN Provider Name:Deedee Perry 2020-06-28 10:40:00 AM, [address] [place], [phone], Provider Name:Debra Funez, 2020-08-12 09:30:00 AM, [address] [place], [phone], Follow Up:2 WeeksPN Insurance Providers Payer Name Payer Address Payer Phone Insured Name Patient Relati onship to Insured Coverage Start Date Coverage End Date [facility] [address] [facility] [id number] JOSEY NEWMAN
[2020-07-04] MEDS ORDERED: PRENTAB9 PO (10:00)
[2020-07-04] MEDS ORDERED: OXYTOCIN DRIP 30 UNITS in IV 1 EA IV SCH ×2 (10:45→23:38)
[2020-07-04] MEDS: LR 1,000 ML IV SCH ×2 (10:57→19:01)
--- NOTE | 2020-07-04 11:00 | HPEPDOC ---
Obstetrical History & Physical General Date of Admission Jul 04, 2020 at 09:45 History of Present Illness HPI: Patient is a 24yo 3, Para 1011, at 39 and 0/7 by 7week ultrasound ( EDC= 07/11/2020) presents for labor induction. She has mild contractions, with no bleeding, no leakage of fluid, and good movement. Information Provided By: Patient Care Care: Good Care Dating Final EDC: Jul 11, 2020 Final EDC by: 1st trimester (US) Antepartum Course Diagnos(e)s A1 Gestational Diabetes Past Medical History Past Obstetrical History : Past Obstetrical History: Multigravida Date of Delivery: Sep 12, 2018 Type of Delivery: Spontaneous Vaginal Del. Sex of : Male Weight of Infant (grams): 3827 Complications: No Past Medical History Surgical History: Denies/None Family History Significant Family History: No pertinent family hx Social History Marital Status: Family situation: Spouse/partner home Psychosocial History: No pertinent psych hx * Smoker: former Smoker Alcohol: Denies Drugs: denies Allergies Coded Allergies: No Known Drug Allergies (Verified Allergy, Unknown, 07/04/20) Uncoded Allergies: PUREX (Allergy, Intermediate, 07/04/20) Medications Scheduled No.137/Iron/Folic Acd ( Vitamin Tablet) 1 Each Tablet, 1 TAB PO DAILY Physical Examination Physical Examination GENERAL: Alert and oriented times three. ABDOMEN: Gravid and non-tender to touch. FETUS: Is vertex (VTX) by sterile vaginal examination (SVE), fetus is vertex (VTX) by Rui. HEART RATE: Regular rate and rhythm. LUNGS: Clear to auscultation (CTA). EXTREMITIES: No edema. No clonus. Deep tendon reflexes (DTRs) + . Vital Signs/I&O Vital Signs Date Time Temp Pulse Resp B/P (MAP) Pulse Ox O2 Delivery O2 Flow Rate FiO2 07/04/20 10:05 98.0 86 18 112/78 (89) Laboratory Data 24H LABS Laboratory Tests 2 07/04/20 10:05: Serology Scanned Report Hepatitis B Testing Pertinent Laboratoy Data Group B Streptococcus: Negative Vaginal Examination Dilation: 3 cm Effacement: 70% Station: -2 Cervical Consistency: Soft Cervical Position: Middle Presentation: Cephalic presentation Assessment Variability: Moderate Accelerations: Positive Decelerations: None Tocometer Contractions: Yes Frequency: irregular Duration: less than 60 seconds Strength: palpated as moderate Assessment/Plan Assessment Patient is a 24-year-old (G)3 para (P)1-0-1-1 at 39+0 weeks by 7-week ultrasound. Presents to Labor and Delivery (L&D) for labor induction. Plan Admit and orient. [employer] General Supervisor and consent. Group B Streptococcus (GBS) negative. Labs and intravenous (IV) per unit protocol. Counseled on Pitocin and induction of labor (IOL). Anticipate normal spontaneous delivery (). C-S as appropriate. GME ATTESTATION GME ATTESTATION My faculty preceptor for this patient encounter was physically present during the encounter and was fully available. All aspects of the patient interview, examination, medical decision making process, and medical care plan development were reviewed and approved by the faculty preceptor. The faculty preceptor is aware and concurs with the plan as stated in the body of this note and will attest to such by his/her cosignature. ROWENA SEPULVEDA Jul 04, 2020 11:00
[2020-07-04 11:10] LABS: HEMATOCRIT 41.7 % (36.0-47.0); HEMOGLOBIN 13.9 g/dl (12.0-15.5); MEAN CORPUSCULAR HGB CONC 33.3 g/dl (32.0-36.5); MEAN CORPUSCULAR VOLUME 87.1 fl (80.0-96.0); PLATELET COUNT, AUTOMATED 161 10^3/uL (150-450); RED BLOOD COUNT 4.79 10^6/uL (4.00-5.40); WHITE BLOOD COUNT 9.8 10^3/uL (4.0-10.0)
[2020-07-04] MEDS ORDERED: FAMOTIDINE 20 MG TAB PO PRN (14:15)
[2020-07-04] MEDS ORDERED: FENTANYL 2MCG/ML ROPIVACAINE 0.2% IN 0.9% NACL 100ML IVBAG As Ordered ONE (20:37)
[2020-07-04] MEDS ORDERED: EPIDURAL/PCA KEYS XX PRN (21:30)
[2020-07-04] MEDS ORDERED: ePHEDrine SULFATE 25 MG/5 ML(5MG/ML) SYRINGE IV PRN (21:30)
[2020-07-04] MEDS ORDERED: LACTATED RINGER'S 1000 ML IV PRN (21:30)
[2020-07-04] MEDS ORDERED: NALOXONE INJ 0.4MG/1ML VIAL (J2310 PER 1MG) IV PRN (21:30)
[2020-07-04] MEDS ORDERED: EPIDURAL COMMENT XX SCH (21:30)
[2020-07-04] MEDS ORDERED: REFRIGERATOR IV KEYS XX PRN (21:30)
[2020-07-04] MEDS ORDERED: FENTANYL/ROPIVACAINE/NACL BAG 100 ML EPIDURAL SCH (21:30)
[2020-07-04] MEDS ORDERED: diphenhydrAMINE 50MG/ML VIAL (J1200) IV PRN (21:30)
[2020-07-04] MEDS ORDERED: ONDANSETRON 4MG/2ML VIAL IV PRN (21:30)
--- NOTE | 2020-07-04 22:06 | IPNPDOC ---
Obstetrical Progress Note Date of Service Jul 04, 2020 Subjective Reports she is comfortable with epidural. Denies urge to push. Objective SROM, small amount of clear fluid on bed and gloves with SVE. Vital Signs Date Time Temp Pulse Resp B/P (MAP) Pulse Ox O2 Delivery O2 Flow Rate FiO2 07/04/20 18:26 73 130/77 (94) 07/04/20 17:32 98.2 18 Assessment Heart Rate (FHR): 130 Variability: Moderate Accelerations: Positive Decelerations: Early Heart Rate Tracing: Category I Tocometer Contractions: Yes Frequency: regular, every 1-3 min. Duration: other (60-90) Strength: palpated as moderate, resting tone palp/soft Sterile Vaginal Examination Dilation: 9 cm Effacement (%): 100% Station: 0 Cervical Consistency: Soft Cervical Position: Anterior Postion/Presentation: Cephalic presentation Assessment and Plan Age: 24 : 3 Term: 1 Pre-term: 0 Abortions: 1 Livin Status: Reassuring Group B Streptococcus: Negative Anticipate: Vaginal Delivery JESSICA OSORIO CNM Jul 04, 2020 22:05
[2020-07-04] MEDS ORDERED: BENZOCAINE 20% HEMORRHOIDAL OINTMENT 28GM TUBE TOP PRN (23:45)
[2020-07-04] MEDS ORDERED: ACETAMINOPHEN 500 MG TAB PO PRN (23:45)
[2020-07-04] MEDS ORDERED: IBUPROFEN 800 MG TAB PO PRN (23:45)
[2020-07-04] MEDS ORDERED: IBUPROFEN 600MG TAB PO PRN (23:45)
[2020-07-04] MEDS ORDERED: METHYLERGONOVINE MALEATE 0.2 MG TAB PO PRN (23:45)
[2020-07-04] MEDS ORDERED: MEASLES,MUMPS,RUBELLA VACCINE INJ (MMR-II) (90707) SC SCH (23:45)
[2020-07-04] MEDS ORDERED: ACETAMINOPHEN TAB 650MG DOSE (2X325MG) PO PRN (23:45)
[2020-07-04] MEDS ORDERED: ANUSOL HC CREAM 30GM TOP PRN (23:45)
[2020-07-04] MEDS ORDERED: RHOGAM 300 MCG (1500 IU) INJ (J2790) IM SCH (23:45)
--- NOTE | 2020-07-04 23:48 | DNPDOC ---
[facility] Delivery Note Delivery Note DATE OF DELIVERY: 07/04/2020 @ 2212 PREDELIVERY DIAGNOSIS: 39-0/7 weeks' gestation and labor. POST DELIVERY DIAGNOSIS: Delivered. PROCEDURE: Spontaneous vaginal delivery. PROVIDER: Jessica Perry CNM, KASSIE and RAFA Spicer ANESTHESIA: Epidural. ESTIMATED BLOOD LOSS: 450 mL. FINDINGS: 10 pound 10 ounce, 4810g, Male infant, Score 8/9, right compound hand, macrosomia, A1 GDM. DELIVERY SUMMARY: Shakira is a 24-year-old 3 now para 2-0-1-2 who was admitted to labor and delivery for an IOL for GDM. Pitocin was started and she progressed well in her labor. Epidural for pain management. Full dilation at 2212. head delivered OA with restitution to ROT. Anterior shoulder delivered with gentle downward traction, and posterior shoulder delivered with a right compound hand and gentle upward traction. Corpus followed without difficulty. Infant placed on maternal abdomen, vigorous and pink with stimulation. Delayed cord clamping for 1 min, then clamped x2 and cut by FOB. Cord blood collected. 3 vessel cord noted. Intact placenta delivered via citlaly mechanism at 2238. Fundal massage and IV Pitocin bolus started. Fundus firmed to U-1 with small flow. Cervix, perineum, and vagina examined, 2nd degree perineal laceration repaired with 3-0 Vicryl Rapide with good approximation and hemostasis. Sponges and sharps counted and correct. Parents plan to name him "Franklin" and breastfeed him. Mother and left in stable condition. JESSICA PERRY CNM Jul 04, 2020 23:48
[2020-07-05 00:13] VITALS: BP 113/55
[2020-07-05 01:15] VITALS: BP 126/69
[2020-07-05 06:13] VITALS: BP 114/69
[2020-07-05] MEDS ORDERED: LIDOCAINE 1% MDV 20ML VIAL As Ordered ONE (07:25)
--- NOTE | 2020-07-05 07:29 | IPNPDOC ---
Progress Note Date of Service: Jul 05, 2020 Day#: 1 Progress Note SUBJECT: Shakira is a 24-year-old 3 now Para 2-0-1-2 status post complicated by a right compound arm and macrosomia, with post vaginal 2nd degree laceration and repair, doing well day # 1. She has been ambulating, voiding spontaneously without issue and tolerating regular diet. Breast feeding is not going well, infant is not latching often. Reports lochia is like a normal period. Pain well controlled with Tylenol and Motrin. OBJECTIVE: VITAL SIGNS: Within normal limits, afebrile. Alert and oriented times three. Respirations regular, no accessory muscle use. Abdomen: Fundus firm at U-1. Soft, NTTP. Extremities: No edema, negative calf tenderness. Minimal lochia. ASSESSMENT: Day 1 PLAN: 1. May shower today. 2. Tylenol and Motrin for pain. 3. Encourage breast feeding and ambulation. 4. Nursing care per policy. VS, I&O, 24H, Fishbone Vital Signs/I&O Vital Signs Date Time Temp Pulse Resp B/P (MAP) Pulse Ox O2 Delivery O2 Flow Rate FiO2 07/05/20 06:13 98.5 86 16 114/69 (84) 07/05/20 01:15 100 I&O- Last 24 Hours up to 6 AM 07/05/20 06:00 Intake Total 2416 ml Output Total 2350 ml Balance 66 ml Laboratory Data 24H LABS Laboratory Tests 2 07/04/20 10:05: Serology Scanned Report Hepatitis B Testing 07/04/20 10:53: Bedside Glucose (Misc Panel) 86 07/04/20 10:59: Nucleated Red Blood Cells % (auto) 0.0, Syphilis Serology NONREACTIVE CBC/BMP Laboratory Tests 07/04/20 10:59 JESSICA OSORIO CNM Jul 05, 2020 07:29
[2020-07-05] MEDS: PRENATAL VITAMINS CHEWABLE TABLET PO SCH (10:18)
[2020-07-05] MEDS: DOCUSATE SODIUM 100MG CAPSULE PO SCH ×2 (10:18→20:25)
[2020-07-05] MEDS ORDERED: LIDOCAINE 1% MDV 20ML VIAL SC ONE (12:30)
[2020-07-05 18:00] VITALS: BP 129/73
[2020-07-06 06:00] VITALS: BP 133/86
[2020-07-06] MEDS: DOCUSATE SODIUM 100MG CAPSULE PO SCH (09:11)
[2020-07-06] MEDS: PRENATAL VITAMINS CHEWABLE TABLET PO SCH (09:11)
--- NOTE | 2020-07-06 09:41 | IPN ---
PROGRESS NOTE DATE: 07/05/2020 This patient requested circumcision of her male . After discussing risks and benefits of circumcision, the medical and nonmedical indications, penile block and aftercare, expressed understanding of penile block and aftercare. Signed a consent form. All questions were answered. A 20 minute discussion. Await clearance by the kid club attendant.
== END 2020-07-06 14:40 | disposition home or self-care (01) | DRG 807 ==
LOC: M LDI 09:45 → M OBS 07-05 01:05
PROVIDERS: ADMIT Specialist; ATTEND Advanced Practice Midwife
PROC: 10E0XZZ Delivery of Products of Conception, External Approach (ICD-10-PCS; principal; 2020-07-04)
PROC: 0KQM0ZZ Repair Perineum Muscle, Open Approach (ICD-10-PCS; 2020-07-04)
PROC: 3E033VJ Introduction of Other Hormone into Peripheral Vein, Percutaneous Approach (ICD-10-PCS; 2020-07-04)
DX: O24.420 Gestational diabetes mellitus in childbirth, diet controlled (principal); Z37.0 Single live birth; Z3A.39 39 weeks gestation of pregnancy; O64.5XX0 Obstructed labor due to compound presentation, not applicable or unspecified; O36.63X0 Maternal care for excessive fetal growth, third trimester, not applicable or unspecified; O70.1 Second degree perineal laceration during delivery

== ENCOUNTER → 2020-08-19 | Outpatient (CLI) | payer OTHER | LOC: M LAB 08:01 | PROVIDERS: ATTEND Advanced Practice Midwife | DX: Z86.32 Personal history of gestational diabetes (principal) ==

== ENCOUNTER → 2020-10-04 | Outpatient (REF) | payer OTHER ==
[2020-10-04 14:34] LABS: HEMOGLOBIN A1c 4.9 %
== END ==
LOC: M PLALAB 13:29
PROVIDERS: ATTEND Family Medicine
DX: Z86.32 Personal history of gestational diabetes (principal)
CPT/HCPCS: 36415; 83036; G0463

== ENCOUNTER → 2020-10-04 | Outpatient (REF) | payer OTHER | LOC: M SFHCWAGY 17:05 | PROVIDERS: ATTEND Advanced Practice Midwife | DX: Z01.419 Encounter for gynecological examination (general) (routine) without abnormal findings (principal); Z12.4 Encounter for screening for malignant neoplasm of cervix ==

== ENCOUNTER → 2021-03-21 | Outpatient (CLI) | payer OTHER | LOC: M LABSMTC 11:54 | PROVIDERS: ATTEND Pediatrics | DX: Z20.822 Contact with and (suspected) exposure to COVID-19 (principal) | CPT/HCPCS: C9803; U0003 ==

== ENCOUNTER → 2025-01-12 | Outpatient (CLI) | payer OTHER | LOC: M WHC 12:49 | PROVIDERS: ATTEND Obstetrics & Gynecology | DX: Z86.32 Personal history of gestational diabetes (principal) ==

== ENCOUNTER → 2025-01-31 | Outpatient (REF) | payer OTHER | LOC: M SFHCWAGY 10:07 | PROVIDERS: ATTEND Obstetrics & Gynecology | DX: Z34.83 Encounter for supervision of other normal pregnancy, third trimester (principal) ==

== ENCOUNTER 2025-02-08 14:08 | Inpatient (IN) | payer OTHER ==
[2025-02-08] VITALS (8 sets, daily range): BP systolic 118–152; BP diastolic 67–95
[~2025-02-08] VITALS: Ht 165.1 cm; Wt 88.9 kg
[~2025-02-08 14:08] MED LIST changes: -ACET-683 PO; -IBUP80TA PO
[2025-02-08] MEDS ORDERED: HOME MED LIST COMPLETE! XX SCH (14:35)
[2025-02-08 15:30] LABS: PLATELET COUNT, AUTOMATED 172 10^3/uL (150-450)
[2025-02-08] MEDS: miSOPROStol 50 MCG 1/2 TABLET PO ONE (15:45)
[2025-02-08 16:01] LABS: LDH LACTATE DEHYDROGENASE 179 U/L (120-246)
[2025-02-08 16:02] LABS: ALT/SGPT 13 U/L (7.0-40); AST/SGOT 14 U/L (<34); CREATININE FOR GFR 0.55 MG/DL (0.55-1.30); GLOMERULAR FILTRATION RATE > 90.0 (>60)
[2025-02-08 16:29] LABS: HIV 1&2 SCREEN NEGATIVE (NEGATIVE)
[2025-02-08 16:37] LABS: HEPATITIS C VIRUS ABY INDEX < 0.02 INDEX (<0.8)
[2025-02-08 16:40] LABS: TOTAL PROTEIN,RANDOM URINE < 6.0 MG/DL (0.0-14.0)
[2025-02-08] MEDS ORDERED: TRANEXAMIC ACID INJection 1,000 MG in NS 100 ML IV PRN (16:40)
[2025-02-08] MEDS ORDERED: miSOPROStol 50 MCG 1/2 TABLET PO SCH (17:00)
[2025-02-08] MEDS: miSOPROStol 50 MCG 1/2 TABLET PO SCH (19:44)
[2025-02-09] VITALS (16 sets, daily range): BP systolic 114–163; BP diastolic 61–85; O2SAT 96–97
[2025-02-09] MEDS: LR 1,000 ML IV SCH (04:29)
[2025-02-09] MEDS: OXYTOCIN DRIP 30 UNITS in IV 1 EA IV SCH (04:29)
[2025-02-09] MEDS ORDERED: IBUPROFEN 600 MG TAB PO PRN (13:00)
[2025-02-09] MEDS ORDERED: METHYLERGONOVINE MALEATE 0.2 MG TAB PO PRN (13:00)
[2025-02-09] MEDS ORDERED: RHOGAM 300MCG (1500IU) INJ IM SCH (13:00)
[2025-02-09] MEDS ORDERED: ANUSOL HC CREAM 30 GM TOP PRN (13:00)
[2025-02-09] MEDS ORDERED: ACETAMINOPHEN 500 MG TAB PO PRN (13:00)
[2025-02-09] MEDS ORDERED: DIBUCAINE 1% OINTMENT 30 GM TOP PRN (13:00)
[2025-02-09] MEDS ORDERED: CALCIUM CARBONATE 500 MG CHEW U/D PO PRN (13:00)
[2025-02-09] MEDS ORDERED: ACETAMINOPHEN 325 MG TAB PO PRN (13:00)
[2025-02-09] MEDS: IBUPROFEN 800 MG TAB PO PRN (13:21)
[2025-02-10 05:44] VITALS: BP 121/77; O2SAT 97
[2025-02-10] MEDS: PRENATAL VITAMINS CHEWABLE TABLET PO SCH (09:11)
[2025-02-10] MEDS: DOCUSATE SODIUM 100 MG CAPSULE PO PRN (09:41)
[2025-02-10] MEDS: MEASLES,MUMPS,RUBELLA VACCINE INJ (MMR-II) SC.IMMUN ONE (14:11)
[2025-02-10 18:00] VITALS: BP 127/73; O2SAT 97
[2025-02-11 05:47] VITALS: BP 135/86; O2SAT 99
[2025-02-11] MEDS ORDERED: IBUP80TA PO (11:21)
[2025-02-11] MEDS ORDERED: ACET-683 PO (11:21)
== END 2025-02-11 12:52 | disposition home or self-care (01) | DRG 807 ==
LOC: M LDO 14:08 → M LDI 15:09 → M OBS 02-09 15:14
PROVIDERS: ADMIT Obstetrics & Gynecology; ATTEND Advanced Practice Midwife
PROC: 3E0P7GC Introduction of Other Therapeutic Substance into Female Reproductive, Via Natural or Artificial Opening (ICD-10-PCS; 2025-02-08)
PROC: 10E0XZZ Delivery of Products of Conception, External Approach (ICD-10-PCS; principal; 2025-02-09)
DX: O41.03X0 Oligohydramnios, third trimester, not applicable or unspecified (principal); Z37.0 Single live birth; Z91.048 Other nonmedicinal substance allergy status; Z87.891 Personal history of nicotine dependence; O73.1 Retained portions of placenta and membranes, without hemorrhage; Z3A.37 37 weeks gestation of pregnancy

== ENCOUNTER → 2025-02-08 | Outpatient (CLI) | payer OTHER ==
[~2025-02-08] MED LIST changes: +ACET-683 PO; +IBUP80TA PO
== END ==
LOC: M WHC 11:43
PROVIDERS: ATTEND Obstetrics & Gynecology
DX: Z86.32 Personal history of gestational diabetes (principal)